=== PATIENT | female | born 1980 | race Caucasian/White ===

== ENCOUNTER 2016-07-27 10:09 | Emergency (ER) | payer BC ==
[~2016-07-27] VITALS: Ht 170.1 cm; Wt 72.6 kg
[~2016-07-27 10:09] MED LIST: AUGMENTIN 875875 MG PO; HYDROCODONE BIT1 T11 PO; ZOFRAN ODT4 MG SL
[2016-07-27] MEDS ORDERED: HYDROCODONE BIT1 T11 PO (11:56)
== END 2016-07-27 12:11 | disposition home or self-care (01) ==
LOC: ED 10:09
DX: S82.892A Other fracture of left lower leg, initial encounter for closed fracture (principal); Z88.6 Allergy status to analgesic agent; W01.0XXA Fall on same level from slipping, tripping and stumbling without subsequent striking against object, initial encounter; Y93.89 Activity, other specified; Y92.89 Other specified places as the place of occurrence of the external cause; Y99.9 Unspecified external cause status